=== PATIENT | female | born 1960 | race Caucasian/White ===

== ENCOUNTER 2022-10-20 18:01 | Inpatient (IN) | payer MEDICAID ==
[~2022-10-20] VITALS: Ht 157.5 cm; Wt 93.9 kg
[2022-10-20] MEDS ORDERED: IPRATROPIUM NEB FS 0.5 MG/2.5 ML AMPUL.NEB ONE ×2 (18:49→19:17)
[2022-10-20] MEDS ORDERED: ALBUTEROL FS 2.5 MG/3 ML VIAL.NEB ONE ×2 (18:49→19:17)
[2022-10-20] MEDS ORDERED: ALBUTEROL FS 2.5 MG/3 ML VIAL.NEB CONTNEB ONE ×2 (19:00→19:30)
[2022-10-20] MEDS ORDERED: IPRATROPIUM NEB FS 0.5 MG/2.5 ML AMPUL.NEB NEB ONE ×2 (19:00→19:30)
[2022-10-20] MEDS ORDERED: methylPREDNISolone SOD SUCC 125 MG/2ML VIAL IV ONE (19:00)
--- NOTE | 2022-10-20 19:16 | NUR ---
PT IN BED 7 A/O X4, BREATHING IS LABORED WITH RETRACTIONS, WHEEZING AUSCULTATED BILATERALLY. C/O ASTHMA EXACERBATION WITH CHEST PAIN 4/10 COUGH IS BLOOD TINGED 3XDAY, THROAT PAIN. GRANDDAUGHTER AT BEDSIDE FOR TRASLATION ARMEINA SPEAKING. BED LOCKED IN LOWEST POSTION HIGH FLOWLERS STARTED NEB ALBUTEROL.
--- NOTE | 2022-10-20 19:20 | NUR ---
FLU SWAB TAKEN AND SENT TO LAB
--- NOTE | 2022-10-20 19:20 | NUR ---
18G LAC STARTED BLOOD DRAWN AND SENT TO LAB.
[2022-10-20] MEDS ORDERED: methylPREDNISolone SOD SUCC 125 MG/2ML VIAL ONE (19:28)
--- NOTE | 2022-10-20 19:38 | NUR ---
CHEST X RAY TAKEN.
[2022-10-20 19:50] LABS: BASOPHILS # (AUTO) 0.1 K/uL (0.0-0.2); BASOPHILS % (AUTO) 0.8 % (0.0-2.0); EOSINOPHILS % (AUTO) 3.2 % (0.0-6.0); HEMATOCRIT 43 % (33-45); HEMOGLOBIN 14.2 g/dL (11.5-14.8); LYMPHOCYTES # (AUTO) 1.2 K/uL (0.8-4.8); LYMPHOCYTES % (AUTO) 14.9 % (20.0-44.0); MEAN CORPUSCULAR HGB CONC 33 g/dl (31.0-36.0); MEAN CORPUSCULAR VOLUME 90 fL (82-100); MONOCYTES # (AUTO) 0.2 K/uL (0.1-1.30); MONOCYTES % (AUTO) 2.9 % (2.0-12.0); NEUTROPHILS # (AUTO) 6.4 K/uL (1.8-8.9); NEUTROPHILS % (AUTO) 78.2 % (43.0-81.0); PLATELET COUNT (AUTO) 360 K/uL (150-450); RED BLOOD CELL COUNT(AUTO) 4.72 MIL/uL (4.0-5.2); WHITE BLOOD COUNT (AUTO) 8.1 K/uL (4.3-11.0)
[2022-10-20 19:58] LABS: CALCIUM, SERUM 10.1 mg/dL (8.5-10.1); POTASSIUM 4.2 mmol/L (3.5-5.1)
[2022-10-20 20:11] LABS: ALBUMIN 4.2 g/dL (3.4-5.0); BILIRUBIN,DIRECT 0.1 mg/dL (0.0-0.2); BILIRUBIN,TOTAL 0.3 mg/dL (0.2-1.0); TOTAL PROTEIN, SERUM 8.8 g/dL (6.4-8.2)
--- NOTE | 2022-10-20 21:43 | NUR ---
COVID SWAB SENT TO LAB
--- NOTE | 2022-10-20 23:17 | NUR ---
Nicol from [facility] [phone] phone #
--- NOTE | 2022-10-20 23:54 | NUR ---
FAXED CLINICALS TO [facility] [phone]
--- NOTE | 2022-10-21 00:51 | NUR ---
LESIA BARRAGAN CALLED FROM [facility] THEY ARE STILL LOOKING FOR BED
--- NOTE | 2022-10-21 02:53 | NUR ---
LESIA BARRAGAN FROM [facility] GAVE AUTH FOR PT TO BE ADMITTED HERE
--- NOTE | 2022-10-21 02:58 | NUR ---
CALLED [facility] FOR [facility] AWAITING CALL BACK
--- NOTE | 2022-10-21 04:44 | NUR ---
report given to davidson koehler for lary
--- NOTE | 2022-10-21 04:50 | NUR ---
RECEIVED REPORT FOR PT FROM NURSE MORALES OF ED @[id number].
[2022-10-21 05:00] VITALS: BP 147/75
--- NOTE | 2022-10-21 05:00 | NUR ---
pt transported to 3rd floor
--- NOTE | 2022-10-21 05:00 | NUR ---
NETWORKING ENGINEER NOTES RECEIVED PT FROM FORTUNE TELLER AND NURSE CARMEN. PT ABLE TO WALK FROM RNEY TO BED. A/O X 4, ABLE TO MAKE NEEDS KNOWN. ORIENTED TO STAFF AND UNIT. PT IS ON 02 INHALATION VIA NASAL CANNULA @2LPM, O2 SAT IS 94%., WHEEZES. PT IV ACCESS ON LEFT AC #18 SALINE LOCK, PATENT, INTACT AND FLUSHES WELL, WITH NO S & SX OF INFILTRATION AT SITE NOTED. PT CAN INDEPENDENTLY WALK. SKIN IS INTACT, WARM AND DRY. PT BELONGING LISTED AND ACCOUNTED FOR, FILED ON THE PT'S CHART. ALL NEEDS ATTENDED. SAFETY MEASURES IN PLACE. BED IN ITS LOWEST AND LOCKED POSITION. SIDE RAILS UP X 2. BED TABLE AND CALL LIGHT IS EASY REACH. BED ALARM IS ON. WILL CONTINUE TO MONITOR PT.
[2022-10-21] MEDS ORDERED: ACETAMINOPHEN 325 MG TABLET PO PRN (05:30)
[2022-10-21 05:46] VITALS: BP 147/75
--- NOTE | 2022-10-21 06:52 | NUR ---
RN CLOSING NOTES PT IS SLEEPING & RESTING COMFORTABLY IN BED. A/OX2, RESPONSIVE AND FOLLOWS VERBAL COMMAND. PT IS IN RA, W/ NO RESPIRATORY DISTRESS @ THIS TIME. IV IS PRESENT ON RIGHT AC #20G SALINE LOCK, PATENT, INTACT AND FLUSHES WELL, W/ NO S & SX OF INFILTRATION @ SITE NOTED. PT'S DIAPER CHANGED, KEPT CLEAN, DRY AND COMFORTABLE. ADMINISTERED MEDICATION ACCORDINGLY PER MD'S ORDER. PT IS ON DIAPER. SAFETY MEASURES IN PLACE. BED IN ITS LOWEST AND LOCKED POSITION. SIDE RAILS UP X 2. BED TABLE AND CALL LIGHT IS EASY REACH. BED ALARM IS ON.WILL ENDORSE PT TO THE NEXT SHIFT FOR CONTINUITY OF CARE. Addendum: 10/21/22 at 0654 by DK MYERS RN ERROR: WRONG PT.
--- NOTE | 2022-10-21 06:54 | NUR ---
RN CLOSING NOTE (CORRECT) PT IS AWAKE & RESTING COMFORTABLY IN BED. A/O X 4, RESPONSIVE AND FOLLOWS VERBAL COMMAND. PT IS ON 02 INHALATION VIA NASAL CANNULA @2LPM, O2 SAT IS 94%., WHEEZES. PT IV ACCESS ON LEFT AC #18 SALINE LOCK, PATENT, INTACT AND FLUSHES WELL, WITH NO S & SX OF INFILTRATION AT SITE NOTED. PT CAN INDEPENDENTLY WALK. SAFETY MEASURES IN PLACE. BED IN ITS LOWEST AND LOCKED POSITION. SIDE RAILS UP X 2. BED TABLE AND CALL LIGHT IS EASY REACH. BED ALARM IS ON. WILL ENDORSE PT TO THE NEXT SHIFT FOR CONTINUITY OF CARE.
--- NOTE | 2022-10-21 06:57 | NUR ---
ADMINISTERED HOME MED MISCELLANEOUS (AMLODIPINE /BENAZEPRIL 5-10MG CASULE) 1 CAPSULE UPON PT'S REQUEST. PT WAS INFORMED THAT HIS BP IS 117/82 AND HR 100. CHARGE NURSE RENATO WAS INFORMED AND NOTIFIED. Addendum: 10/21/22 at 0701 by DK MYERS RN ERROR: WRONG PT.
--- NOTE | 2022-10-21 07:45 | NUR ---
MS RN OPENING NOTE RECEIVED PT AWAKE & RESTING IN BED. A/O X 4, ABLE TO MAKE NEEDS KNOWN. PT IS ON O2 INHALATION VIA NASAL CANNULA @2LPM. RESPIRATORY TREATMENT BY BEDSIDE. WHEEZES NOTED DURING AUSCULTATION. IV ACCESS ON LEFT AC #18 SALINE LOCK, PATENT, INTACT AND FLUSHES WELL, WITH NO S & SX OF INFILTRATION AT SITE NOTED. PT CAN INDEPENDENTLY WALK. SAFETY MEASURES IN PLACE. KEPT BED IN LOCKED AND IN LOW POSITION. SIDE RAILS UP X2. WILL CONTINUE TO MONITOR.
[2022-10-21 08:00] VITALS: BP 125/73
[2022-10-21] MEDS: ALBUTEROL FS 2.5 MG/3 ML VIAL.NEB NEB SCH ×3 (08:02→19:25)
[2022-10-21] MEDS: IPRATROPIUM NEB FS 0.5 MG/2.5 ML AMPUL.NEB NEB SCH ×3 (08:02→19:24)
[2022-10-21] MEDS: METFORMIN 500 MG TABLET PO SCH ×2 (08:49→16:31)
[2022-10-21] MEDS: methylPREDNISolone SOD SUCC 40 MG/ML VIAL IV SCH ×3 (09:12→21:20)
[2022-10-21] MEDS: ENOXAPARIN SODIUM 40 MG/0.4 ML DISP.SYRIN SQ SCH (09:16)
[2022-10-21] MEDS ORDERED: methylPREDNISolone SOD SUCC 40 MG/ML VIAL IV SCH (13:00)
[2022-10-21 16:00] VITALS: BP 123/64
--- NOTE | 2022-10-21 18:52 | NUR ---
RN CLOSING NOTE PT IS AWAKE & RESTING IN BED. A/O X 4, COLOMBIAN SPEAKING, ABLE TO MAKE NEEDS KNOWN. PT IS ON 02 INHALATION VIA NC. WHEEZES NOTED DURING AUSCULTATION. PT IV ACCESS ON LEFT AC #18 SALINE LOCK, PATENT, INTACT AND FLUSHES WELL, WITH NO S & SX OF INFILTRATION AT SITE NOTED. SAFETY MEASURES IN PLACE. BED IN LOWEST AND LOCKED POSITION. SIDE RAILS UP X 2. BED TABLE AND CALL LIGHT IS EASY REACH. BED ALARM IS ON. WILL ENDORSE PT TO THE NEXT SHIFT FOR LISA.
--- NOTE | 2022-10-21 19:30 | NUR ---
MS RN OPENING NOTES RECEIVED PATIENT IN BED AWAKE, ALERT AND ORIENTED. A/O X 4. ON RA, BREATHING EVEN AND UNLABORED, NO SIGNS OF SOB OR ANY DISTRESS AT THIS TIME. IV ACCES ON RAC #20G SALINE LOCK, PATENT, INTACT AND FLUSHING WELL. WILL MAINTAIN SAFETY MEASURES IN PLACE. BED IN LOWEST AND LOCKED POSITION. SIDE RAILS UP X 2. CALL LIGHT AND TABLE ON EASY REACH. BED ALARM IS ON. WILL CONTINUE WITH THE PLAN OF CARE.
[2022-10-21 20:00] VITALS: BP 143/81
[2022-10-21] MEDS: MONTELUKAST SODIUM (10MG) 10 MG TABLET PO SCH (21:20)
[2022-10-21] MEDS: ATORVASTATIN 10 MG TABLET PO SCH (21:24)
[2022-10-22] MEDS: IPRATROPIUM NEB FS 0.5 MG/2.5 ML AMPUL.NEB NEB SCH ×4 (01:57→20:06)
[2022-10-22] MEDS: ALBUTEROL FS 2.5 MG/3 ML VIAL.NEB NEB SCH ×4 (01:57→20:06)
[2022-10-22] MEDS: methylPREDNISolone SOD SUCC 40 MG/ML VIAL IV SCH ×5 (03:43→23:38)
[2022-10-22 05:49] LABS: BASOPHILS % (AUTO) 0.1 % (0.0-2.0); HEMATOCRIT 37 % (33-45); HEMOGLOBIN 12.3 g/dL (11.5-14.8); LYMPHOCYTES # (AUTO) 0.6 K/uL (0.8-4.8); LYMPHOCYTES % (AUTO) 4.6 % (20.0-44.0); MEAN CORPUSCULAR HGB CONC 33 g/dl (31.0-36.0); MEAN CORPUSCULAR VOLUME 92 fL (82-100); MONOCYTES # (AUTO) 0.1 K/uL (0.1-1.30); MONOCYTES % (AUTO) 0.9 % (2.0-12.0); NEUTROPHILS # (AUTO) 13.2 K/uL (1.8-8.9); NEUTROPHILS % (AUTO) 94.4 % (43.0-81.0); PLATELET COUNT (AUTO) 347 K/uL (150-450); RED BLOOD CELL COUNT(AUTO) 4.05 MIL/uL (4.0-5.2)
[2022-10-22 06:04] LABS: CALCIUM, SERUM 9.4 mg/dL (8.5-10.1); CREATININE 1.1 mg/dL (0.6-1.3); POTASSIUM 4.8 mmol/L (3.5-5.1)
--- NOTE | 2022-10-22 07:46 | NUR ---
MS RN CLOSING NOTES PATIENT IN BED AWAKE, ALERT AND ORIENTED. A/O X 4. ON RA, BREATHING EVEN AND UNLABORED, NO SIGNS OF SOB OR ANY DISTRESS AT THIS TIME. IV ACCES ON RAC #20G SALINE LOCK, PATENT, INTACT AND FLUSHING WELL. IV MEDS AND PO MEDS GIVEN. SAFETY MEASURES MAINTAINED IN PLACE. BED IN LOWEST AND LOCKED POSITION. SIDE RAILS UP X 2. CALL LIGHT AND TABLE ON EASY REACH. BED ALARM IS ON. WILL ENDORSE TO THE NEXT SHIFT.
--- NOTE | 2022-10-22 07:49 | NUR ---
RN OPENING NOTE PATIENT AWAKE IN BED RESTING, A/O X 4. NO S/S OF PAIN NOTED AT THIS TIME. ON 2L OXYGEN VIA NC, BREATHING EVEN UNLABORED, NO DISTRESS OR SHORTNESS OF BREATH NOTED. IV ACCESS LAC #18G, INTACT, PATENT AND FLUSHING WELL. FALL AND SAFETY MEASURES IN PLACE, BED ALARM ON, BED IN LOW AND LOCK POSITION, CALL LIGHT AND TABLE WITHIN EASY REACH, SIDE RAILS UP X2. WILL CONTINUE TO MONITOR.
[2022-10-22 08:00] VITALS: BP 128/69
[2022-10-22] MEDS: METFORMIN 500 MG TABLET PO SCH ×2 (08:35→17:08)
[2022-10-22] MEDS: ENOXAPARIN SODIUM 40 MG/0.4 ML DISP.SYRIN SQ SCH (08:36)
[2022-10-22] MEDS ORDERED: METF-440 PO (13:13)
[2022-10-22] MEDS ORDERED: SIMV-46 PO (13:13)
[2022-10-22] MEDS ORDERED: FLUT1BLS12 INH (13:13)
[2022-10-22] MEDS ORDERED: ALBU2.5V38 NEB (13:13)
[2022-10-22] MEDS ORDERED: MONT10TA22 PO (13:13)
[2022-10-22 16:00] VITALS: BP_SYST 105; BP_SYST 133; BP_DIAS 53; BP_DIAS 68
--- NOTE | 2022-10-22 18:42 | NUR ---
RN CLOSING NOTE PATIENT AWAKE IN BED RESTING, A/O X 4. NO S/S OF PAIN NOTED AT THIS TIME. ON 2L OXYGEN VIA NC, BREATHING EVEN UNLABORED, NO DISTRESS OR SHORTNESS OF BREATH NOTED. IV ACCESS LAC #18G, INTACT, PATENT AND FLUSHING WELL. SCHEDULE MEDICATIONS ADMINISTERED. PATIENT WAS ENCOURAGE TO TURN AND REPOSITIONED PER PROTOCOL. FALL AND SAFETY MEASURES IN PLACE, BED ALARM ON, BED IN LOW AND LOCK POSITION, CALL LIGHT AND TABLE WITHIN EASY REACH, SIDE RAILS UP X2. ALL NEEDS ATTENDED AND ANTICIPATED, WILL ENDORSE TO RESEARCH INTERVIEWER NURSE.
--- NOTE | 2022-10-22 19:26 | NUR ---
MS RN OPENING NOTES RECEIVED PATIENT AWAKE IN BED. PATIENT IS A/O TIMES 4 [place] SPEAKER. ABLE TO VERBALIZE HER NEEDS. NO PAIN NOTED. NO SOB NOTED. NO DISTRESS NOTED. IV ACCESS ON LAC G # 18 INTACT , PATENT AND SL. ON O2 INHALATION VIA NASAL CANNULA AT 2L/MIN. ALL SAFETY MEASURES IN PLACE. BED LOCKED IN THE LOWEST POSITION. CALL LIGHT AND TABLE IN EASY REACH. SIDE RAILS UP TIMES 2. WILL CONTINUE TO MONITOR CLOSELY.
[2022-10-22 20:00] VITALS: BP 150/78
[2022-10-22] MEDS: MONTELUKAST SODIUM (10MG) 10 MG TABLET PO SCH (21:23)
[2022-10-22] MEDS: ATORVASTATIN 10 MG TABLET PO SCH (21:23)
[2022-10-23] MEDS: ALBUTEROL FS 2.5 MG/3 ML VIAL.NEB NEB SCH ×4 (02:16→20:01)
[2022-10-23] MEDS: IPRATROPIUM NEB FS 0.5 MG/2.5 ML AMPUL.NEB NEB SCH ×4 (02:16→20:01)
[2022-10-23] MEDS: methylPREDNISolone SOD SUCC 40 MG/ML VIAL IV SCH ×3 (05:29→16:47)
--- NOTE | 2022-10-23 06:34 | NUR ---
MS RN CLOSING NOTES PATIENT AWAKE IN BED. PATIENT IS A/O TIMES 4 [place]ALL[place] SPEAKER. ABLE TO VERBALIZE HER NEEDS. NO PAIN NOTED. NO SOB NOTED. NO DISTRESS NOTED. IV ACCESS ON LAC G # 18 INTACT , PATENT , FLUSHING WELL AND SL. ON O2 INHALATION VIA NASAL CANNULA AT 2L/MIN. ALL DUE MEDS GIVEN ORDERED. ALL SAFETY MEASURES IN PLACE. BED LOCKED IN THE LOWEST POSITION. CALL LIGHT AND TABLE IN EASY REACH. SIDE RAILS UP TIMES 2. WILL ENDORSE FOR LISA.
[2022-10-23 07:00] VITALS: BP 156/85
--- NOTE | 2022-10-23 07:29 | NUR ---
MS RN OPENING NOTES RECEIVED PATIENT AWAKE IN BED. A/O X 4, SWED[place] SPEAKER, UNDERSTANDS [place]. ABLE TO VERBALIZE HER NEEDS. NO C/O PAIN/DISCOMFORT AT THIS TIME. NOTED PATIENT HAS WHEEZES, BREATHING TREATMENT GIVEN BY RT. IV ACCESS ON LAC #18G, INTACT, FLUSHED. ON O2 INHALATION VIA NASAL CANNULA AT 2L/MIN. ALL SAFETY MEASURES IN PLACE: BED LOCKED IN THE LOWEST POSITION, CALL LIGHT AND TABLE WITHIN EASY REACH, SIDE RAILS UP TIMES 2. WILL CONTINUE TO MONITOR.
[2022-10-23] MEDS ORDERED: THEOPHYLLINE ANHYDROUS 200 MG TAB.SR.12H PO SCH (09:00)
[2022-10-23] MEDS: AZITHROMYCIN 250 MG TABLET PO SCH (09:01)
[2022-10-23] MEDS: METFORMIN 500 MG TABLET PO SCH ×2 (09:02→16:47)
[2022-10-23] MEDS: ENOXAPARIN SODIUM 40 MG/0.4 ML DISP.SYRIN SQ SCH (09:09)
[2022-10-23 16:00] VITALS: BP 140/67
--- NOTE | 2022-10-23 18:52 | NUR ---
MS RN CLOSING NOTES PATIENT RESTING IN BED. A/O X 4, [place] SPEAKER, UNDERSTANDS BELARUS[place]. ABLE TO MAKE NEEDS KNOWN. NO C/O PAIN/DISCOMFORT WITHIN THE SHIFT. NO WHEEZES ON RESPIRATION NOTED AT THIS TIME. MAINTAINED IV ACCESS ON LAC #18G, INTACT, FLUSHED. ON O2 INHALATION VIA NASAL CANNULA AT 2L/MIN, TOLERATED WELL. NEEDS ATTENDED. SAFETY MEASURES IN PLACE: BED LOCKED IN THE LOWEST POSITION, CALL LIGHT AND TABLE WITHIN EASY REACH, SIDE RAILS UP TIMES 2. WILL ENDORSE LISA TO CUB REPORTER.
--- NOTE | 2022-10-23 19:40 | NUR ---
MS RN OPENING NOTE RECEIVED PATIENT AWAKE IN BED. PATIENT IS A/O TIMES 4, EQUATORIAL GUINEAN SPEAKING. ABLE TO VERBALIZE NEEDS. NO SOB, NO DISTRESS NOTED. NO C/O PAIN OR DISCOMFORT. IV ACCESS ON LEFT AC #18G, IV INTACT, PATENT, AND SALINE LOCKED. ON O2 VIA NASAL CANNULA AT 2L/MIN. ALL SAFETY MEASURES IN PLACE. BED LOCKED IN THE LOWEST POSITION. CALL LIGHT AND TABLE IN EASY REACH. SIDE RAILS UP TIMES 2. WILL CONTINUE TO MONITOR CLOSELY.
[2022-10-23 20:00] VITALS: BP 140/97
[2022-10-23] MEDS: THEOPHYLLINE ANHYDROUS 100 MG TAB.SR.12H PO SCH (21:48)
[2022-10-23] MEDS: ATORVASTATIN 10 MG TABLET PO SCH (21:49)
[2022-10-23] MEDS: MONTELUKAST SODIUM (10MG) 10 MG TABLET PO SCH (21:49)
[2022-10-24] MEDS: methylPREDNISolone SOD SUCC 40 MG/ML VIAL IV SCH ×2 (01:12→08:47)
[2022-10-24] MEDS: ALBUTEROL FS 2.5 MG/3 ML VIAL.NEB NEB SCH ×2 (01:34→08:02)
[2022-10-24] MEDS: IPRATROPIUM NEB FS 0.5 MG/2.5 ML AMPUL.NEB NEB SCH ×2 (01:34→08:01)
[2022-10-24 06:06] LABS: BASOPHILS % (AUTO) 0.1 % (0.0-2.0); HEMATOCRIT 36 % (33-45); HEMOGLOBIN 11.8 g/dL (11.5-14.8); LYMPHOCYTES # (AUTO) 0.5 K/uL (0.8-4.8); LYMPHOCYTES % (AUTO) 5.9 % (20.0-44.0); MEAN CORPUSCULAR HGB CONC 33 g/dl (31.0-36.0); MEAN CORPUSCULAR VOLUME 91 fL (82-100); MONOCYTES # (AUTO) 0.2 K/uL (0.1-1.30); MONOCYTES % (AUTO) 2.3 % (2.0-12.0); NEUTROPHILS # (AUTO) 8.3 K/uL (1.8-8.9); NEUTROPHILS % (AUTO) 91.7 % (43.0-81.0); PLATELET COUNT (AUTO) 297 K/uL (150-450); RED BLOOD CELL COUNT(AUTO) 3.93 MIL/uL (4.0-5.2)
[2022-10-24 06:14] LABS: CALCIUM, SERUM 9.2 mg/dL (8.5-10.1); POTASSIUM 4.4 mmol/L (3.5-5.1)
--- NOTE | 2022-10-24 06:41 | NUR ---
MS RN CLOSING NOTE LEFT PATIENT AWAKE IN BED. PATIENT IS A/O TIMES 4, ESTONIAN SPEAKING. ABLE TO VERBALIZE NEEDS. NO SOB, NO DISTRESS NOTED. NO C/O PAIN OR DISCOMFORT. IV ACCESS ON LEFT AC #18G, IV INTACT, PATENT, AND SALINE LOCKED. ON O2 VIA NASAL CANNULA AT 2L/MIN. ALL SAFETY MEASURES IN PLACE. BED LOCKED IN THE LOWEST POSITION. CALL LIGHT AND TABLE IN EASY REACH. SIDE RAILS UP TIMES 2. WILL ENDORSE PT TO AM SHIFT NURSE FOR LISA.
--- NOTE | 2022-10-24 07:00 | NUR ---
MS RN OPENING NOTES: RECEIVED PATIENT IN BED, AWAKE ALBANIAN SPEAKING BUT ABLE TO UNDERSTAND FRISIAN. PT ALERT AND ORIENTED X 4 ABLE TO MAKE NEEDS KNOWN. ON O2 INHALATION @ 2LPM VIA NC STAND BY. IV ACCESS ON LAC GAUGE 18 PATENT, INTACT AND SALINE LOCKED. SAFETY MEASURES MAINTAINED: BED LOCKED AND IN LOWEST POSITION, SIDE RAILS UP X 2 AND WILL MONITOR PT ACCORDINGLY.
[2022-10-24 08:07] VITALS: BP_SYST 132; BP_SYST 140; BP_DIAS 71; BP_DIAS 77
[2022-10-24] MEDS: AZITHROMYCIN 250 MG TABLET PO SCH (08:48)
[2022-10-24] MEDS: METFORMIN 500 MG TABLET PO SCH (08:49)
[2022-10-24] MEDS: ENOXAPARIN SODIUM 40 MG/0.4 ML DISP.SYRIN SQ SCH (08:50)
[2022-10-24] MEDS ORDERED: PRED5TAB48 PO (08:50)
[2022-10-24] MEDS ORDERED: AZIT250T PO (08:50)
[2022-10-24] MEDS ORDERED: Theophylline Anhydrous PO (08:50)
[2022-10-24] MEDS ORDERED: PANT40TA2 PO (08:50)
[2022-10-24] MEDS ORDERED: IPRA3AMP23 IH (08:50)
[2022-10-24] MEDS: THEOPHYLLINE ANHYDROUS 100 MG TAB.SR.12H PO SCH ×2 (09:00→09:56)
--- NOTE | 2022-10-24 09:18 | NUR ---
RN NOTES: THEOPHYLLINE NOT GIVEN, NOT AVAILABLE.SPOKE TO [facility] THEY SAID THEY WILL SEND IT OVER.
--- NOTE | 2022-10-24 09:56 | NUR ---
RN NOTES: KALEY MORRIS DELIVERED, PT TOOK MEDS.
--- NOTE | 2022-10-24 11:15 | NUR ---
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 PT ALERT AND ORIENTED X 4. ON ROOM AIR AND PATIENT TOLERATING WELL SATURATING @ 95-96 %, WHEEZING STILL PRESENT. DISCHARGE INSTRUCTIONS AND PRESCRIPTION GIVEN TO BROTHER IN LAW AND PATIENT, PACKET GIVEN TO CHITO BROTHER IN LAW AND VERBALIZED UNDERSTANDING.SKIN IS INTACT. IV ACCESS REMOVED AND IDENTIFICATION BAND REMOVED. VENTILATOR SPECIALIST HELPED PATIENT TO WHEELED IN THE LOBBY. PT LEFT THE UNIT STABLE.
== END 2022-10-24 11:15 | disposition home or self-care (01) | DRG 141 ==
LOC: ER 18:09 → TELE 10-21 04:19 → MED 10-21 05:00
PROVIDERS: ADMIT Internal Medicine; ATTEND Internal Medicine
DX: J45.901 Unspecified asthma with (acute) exacerbation (principal); J96.00 Acute respiratory failure, unspecified whether with hypoxia or hypercapnia; E11.9 Type 2 diabetes mellitus without complications; E78.5 Hyperlipidemia, unspecified; Z20.822 Contact with and (suspected) exposure to COVID-19; I10 Essential (primary) hypertension; E66.9 Obesity, unspecified; Z79.51 Long term (current) use of inhaled steroids; Z85.42 Personal history of malignant neoplasm of other parts of uterus; Z90.710 Acquired absence of both cervix and uterus; Z79.84 Long term (current) use of oral hypoglycemic drugs; Z68.37 Body mass index [BMI] 37.0-37.9, adult; K57.30 Diverticulosis of large intestine without perforation or abscess without bleeding; Z92.3 Personal history of irradiation
CPT/HCPCS: 36415; 71045-TC; 71250-TC; 80048-TC; 80076-TC; 83880; 85025-TC; 87081-TC; 94799-TC; C9803; G0378; J1650; J2920; J2930